=== PATIENT | female | born 1995 | race American Indian/Alaskan Native ===

== ENCOUNTER 2018-11-26 11:24 | Emergency (ER) | payer OTHER ==
--- NOTE | 2018-11-26 11:37 | Emergency Department Report ---
Blank Doc - Documentation Documentation: This is a 23-year-old female that presents with URI symptoms x1 day. This initial assessment/diagnostic orders/clinical plan/treatment(s) is/are subject to change based on patient's health status, clinical progression and re- assessment by fellow clinical providers in the ED. Further treatment and workup at subsequent clinical providers discretion. Patient/guardians urged not to elope from the ED as their condition may be serious if not clinically assessed and managed. Initial orders include: 1- Patient sent to [facility] for further evaluation and treatment 2- CXR
[2018-11-26 11:38] VITALS: BP 136/83
--- NOTE | 2018-11-26 12:50 | XRay Report ---
XRAY CHEST TWO VIEWS: 11/26/18 11:24:00 CLINICAL: Cough. COMPARISON: None FINDINGS: Normal heart and pulmonary vasculature. The lungs are slightly underexpanded but clear. No airspace disease or pleural effusion.The bones and soft tissues are unremarkable. IMPRESSION: Normal chest.
--- NOTE | 2018-11-26 13:16 | Emergency Department Report ---
ED Fever HPI - General Chief Complaint: Upper Respiratory Infection Stated Complaint: FLU LIKE SYMPTOMS Time Seen by Provider: 11/26/18 11:34 Source: patient - History of Present Illness Initial Comments: Ms. Barroso has had fever, cough, nasal congestion, body aches and diarrhea for the past day. 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 Timing/Duration: other (one tracy) Fever Severity/Quality: subjective Fever Therapy [employer]: cold remedies Associated Symptoms: muscle aches, sore throat ED Review of Systems ROS: Stated complaint: FLU LIKE SYMPTOMS Other details as noted in HPI Constitutional: fever, malaise ENT: throat pain Respiratory: cough Gastrointestinal: diarrhea ED Past Medical Hx - Past Medical History Previous Medical History?: No - Surgical History Past Surgical History?: No - Social History Smoking Status: Never Smoker Substance Use Type: Alcohol - Medications Home Medications: Home Medications Medication Instructions Recorded Confirmed Last Taken Type Oseltamivir [Tamiflu] 75 mg PO BID 5 Days #10 cap 11/26/18 Unknown Rx ED Physical Exam - General Limitations: No Limitations General appearance: alert, in no apparent distress - Head Head exam: Present: atraumatic, normocephalic - Eye Eye exam: Present: normal appearance - ENT ENT exam: Present: other (edematous tonsils no exudates) - Neck Neck exam: Present: normal inspection - Respiratory Respiratory exam: Present: normal lung sounds bilaterally. Absent: respiratory distress - Cardiovascular Cardiovascular Exam: Present: regular rate, normal rhythm, normal heart sounds. Absent: systolic murmur, diastolic murmur, rubs, gallop - GI/Abdominal GI/Abdominal exam: Present: soft, normal bowel sounds. Absent: distended, tenderness, guarding, rebound - Extremities Exam Extremities exam: Present: normal inspection - Back Exam Back exam: Present: normal inspection - Neurological Exam Neurological exam: Present: alert, oriented X3 - Psychiatric Psychiatric exam: Present: normal affect, normal mood - Skin Skin exam: Present: warm, dry, intact, normal color. Absent: rash ED Course Vital Signs 11/26/18 11:36 Temperature 98.1 F Pulse Rate 80 Respiratory 18 Rate Blood Pressure 136/83 O2 Sat by Pulse 99 Oximetry ED Medical Decision Making - Radiology Data Radiology results: image reviewed interpreted by me: Chest X-ray PA/Lateral two-view radiographs, interpreted by me. My impression: No infiltrate, no pneumothorax, normal cardiac silhouette, normal mediastinum, no gross osseous abnormality, no acute process - Medical Decision Making Clinical impression: Influenza prescription for Tamiflu Critical care attestation.: If time is entered above; I have spent that time in minutes in the direct care of this critically ill patient, excluding procedure time. ED Disposition Clinical Impression: Influenza Disposition: DC-01 TO HOME OR SELFCARE Is pt being admited?: No Does the pt Need Aspirin: No Condition: Stable Instructions: Influenza (ED) Prescriptions: Oseltamivir [Tamiflu] 75 mg PO BID 5 Days #10 cap Referrals: [facility] [Other] - as needed Forms: Work/School Release Form(ED)
== END 2018-11-26 13:24 | disposition home or self-care (01) ==
LOC: ED 11:24
DX: J11.1 Influenza due to unidentified influenza virus with other respiratory manifestations (principal)
CPT/HCPCS: 71046

== ENCOUNTER 2019-10-23 12:41 | Emergency (ER) | payer OTHER ==
[2019-10-23 13:59] VITALS: BP 125/85
--- NOTE | 2019-10-23 14:00 | Event Note ---
ED Screening Note Date of service: 10/23/19 Time: 13:56 ED Screening Note: 24 y/o female comes in for sore throat since Saturday. Pain with swallowing. Split saliva peritonsilar abscess This initial assessment/diagnostic orders/clinical plan/treatment(s) is/are subject to change based on patients health status, clinical progression and re- assessment by fellow clinical providers in the ED. Further treatment and workup at subsequent clinical providers discretion. Patient/guardian urged not to elope from the ED as their condition may be serious if not clinically assessed and managed. Initial orders include:
--- NOTE | 2019-10-23 16:07 | Cat Scan Report ---
CT NECK WITH INTRAVENOUS CONTRAST AND MULTIPLANAR RECONSTRUCTION CLINICAL HISTORY: peritonsil abscess TECHNIQUE: 2.5 mm thick contiguous axial scans were obtained from the skull base down to the level of the medial clavicular heads. Superior mediastinum and thoracic aorta were excluded.. In addition to evaluation of axial source images sagittal and coronal multiplanar reconstructions were produced and reviewed fo r this report. FINDINGS: Enlargement of the palatine tonsils is demonstrated bilaterally, left larger than right. The tonsils are in contact in the midline and reduces the caliber of the airway in that region. The palatine tons ils extend down to contact the epiglottis bilaterally. Subtle decreased attenuation along the parapha ryngeal space above the posterior lateral aspect of the left palatine tonsil could represent a perito nsillar abscess. This measures about 12 x 17 x 9 mm in size. (Series 2 image 29, series 301 image 44) . CT neck with administration of intravenous contrast may help clarify this finding if clinically war ranted. No additional abnormalities are seen along the course of the airway. Nasopharynx, hypopharynx , larynx and visualized portions of the subglottic airway all have an unremarkable appearance. Normal-sized lymph nodes are present in level 1B bilaterally. Normal level II lymph nodes are also ob served bilaterally. There is no indication of pathological cervical lymphadenopathy. No abnormalities are seen in evaluation of the oral cavity and tongue. The floor the mouth has a norm al appearance. The parotid and submandibular salivary glands have a normal appearance. Evaluation of the nasal cavity reveals no abnormality. The paranasal sinuses are free from inflammato ry mucosal disease. Evaluation of the orbits a reveals no abnormality. The thyroid gland is normal in size and homogeneous in attenuation. No focal thyroid lesions are iden tified. Evaluation of the cervical spine reveals no abnormality. Normal alignment is maintained. No significa nt degenerative changes are identified. Evaluation of the lung apices reveals no abnormality. There is no indication of lung nodule or infilt rate. The visualized portions of the superior mediastinum have an unremarkable appearance. Enhancement of normal vascular structures is demonstrated. No areas of abnormal contrast enhancement are identified. IMPRESSION: 1. Marked enlargement of the palatine tonsils is demonstrated bilaterally, left more than right, as d escribed in detail above. 2. Subtle decreased attenuation located just above the the posterior lateral aspect of the left palat ine tonsil could represent a peritonsillar abscess as described above. All CT imaging studies performed at this facility utilize dose modulation, iterative reconstruction o r weight based dosing, if appropriate, to obtain the lowest achievable radiation dose. Signer Name: Lucio Vines MD Signed: 10/23/2019 4:03 PM Workstation Name: [id number]
[2019-10-23] MEDS ORDERED: HYDROcodone/ACETAMINOPHEN 5-325 MG TAB PO ONE (16:49)
[2019-10-23] MEDS ORDERED: IBUPROFEN 800 MG TAB PO ONE (16:49)
[2019-10-23] MEDS ORDERED: LIDOCAINE 1%/EPINEPHRINE 1:100,000 VIAL (20 ML) INFILTRATI ONE (16:50)
[2019-10-23] MEDS ORDERED: LIDOCAINE VISCOUS 2% 15 ML ORAL LIQD PO ONE (16:50)
[2019-10-23] MEDS ORDERED: CLINDAMYCIN 300 MG CAP PO ONE (16:54)
--- NOTE | 2019-10-23 16:57 | Emergency Department Report ---
HPI - General Chief Complaint: Sore Throat Time Seen by Provider: 10/23/19 13:55 - HPI HPI: Room 36 The patient is a 24-year-old female presenting with a chief complaint of sore throat. Patient states for the past 3 days pain for (left. Patient denies fever or rhinorrhea. Patient admits to odynophagia and occasional cough. Patient gives her pain a score 10/10 Location: [See above] Duration: [See above] Quality: [See above] Severity: [See above] Timing: [See above] Context: [See above] Modifying factors: [See above] Associated signs and symptoms: [see above] ED Past Medical Hx - Past Medical History Previous Medical History?: No - Surgical History Past Surgical History?: No - Family History Family history: no significant - Social History Smoking Status: Never Smoker Substance Use Type: None - Medications Home Medications: Home Medications Medication Instructions Recorded Confirmed Last Taken Type Oseltamivir [Tamiflu] 75 mg PO BID 5 Days #10 cap 11/26/18 Unknown Rx Clindamycin [Clindamycin CAP] 300 mg PO Q6H #40 capsule 10/23/19 Unknown Rx HYDROcodone/APAP 5-325 [[place] 1 - 2 each PO Q6HR PRN #14 tablet 10/23/19 Unknown Rx 5/325] Ibuprofen [Motrin 800 MG tab] 800 mg PO Q8HR PRN #20 tablet 10/23/19 Unknown Rx ED Review of Systems ROS: Stated complaint: throat pain Other details as noted in HPI Constitutional: denies: fever Eyes: denies: eye pain ENT: throat pain Respiratory: cough Physical Exam - Physical Exam Vital Signs: Vital Signs 10/23/19 13:57 Temperature 98.7 F Pulse Rate 86 Respiratory 20 Rate Blood Pressure 125/85 [125/85] O2 Sat by Pulse 99 Oximetry Physical Exam: GENERAL: The patient is well-developed well-nourished female sitting on stretcher not appearing to be in acute distress. [] HEENT: Normocephalic. Atraumatic. Extraocular motions are intact. Left tonsil fullness. No trismus appreciated NECK: Supple. No meningitic signs are noted. There is no cervical adenopathy present CHEST/LUNGS: There is no respiratory distress noted. SKIN: There is no rash. There is no edema. There is no diaphoresis. NEURO: The patient is awake, alert, and oriented. The patient is cooperative. The patient has normal speech MUSCULOSKELETAL: There is no evidence of acute injury. ED Course Vital Signs 10/23/19 13:57 Temperature 98.7 F Pulse Rate 86 Respiratory 20 Rate Blood Pressure 125/85 [125/85] O2 Sat by Pulse 99 Oximetry - Procedure Description Procedures done: Left peritonsillar abscess aspiration- patient was pre- anesthetized with viscous lidocaine by mouth. Patient was then given an injection of lidocaine 1% with epi 2 mls. There are 19-gauge needle with 1 cm guard was inserted to be in the size region with aspiration of approximately 0.5 mL coffee colored pus. Patient tolerated well ED Medical Decision Making - Differential Diagnosis tonsillitis, retropharyngeal abscess, peritonsillar abscess Critical care attestation.: If time is entered above; I have spent that time in minutes in the direct care of this critically ill patient, excluding procedure time. ED Disposition Clinical Impression: Peritonsillar abscess Disposition: DC- TO HOME OR SELFCARE Is pt being admited?: No Does the pt Need Aspirin: No Condition: Stable Instructions: Peritonsillar Abscess (ED) Additional Instructions: Return to the emergency department should you develop worsening symptoms, inability to tolerate food or liquids, high fever or any other concerns Prescriptions: Clindamycin [Clindamycin CAP] 300 mg PO Q6H #40 capsule Ibuprofen [Motrin 800 MG tab] 800 mg PO Q8HR PRN #20 tablet PRN Reason: Pain, Moderate (4-6) HYDROcodone/APAP 5-325 [[place] 5/325] 1 - 2 each PO Q6HR PRN #14 tablet PRN Reason: Pain Referrals: BRADY ELIZABETH MD [Staff Physician] - 3-5 Days (Dr. 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 Please follow-up with her for further evaluation) Time of Disposition: 17:30
== END 2019-10-23 17:54 | disposition home or self-care (01) ==
LOC: ED 12:41
DX: J36 Peritonsillar abscess (principal); Z79.899 Other long term (current) drug therapy
CPT/HCPCS: 70490; 87076; 87116; 87186

== ENCOUNTER 2021-09-14 17:04 | Emergency (ER) | payer OTHER ==
[2021-09-14] MEDS ORDERED: SODIUM CHLORIDE 0.9% 1000 ML 1,000 ML IV ONE (20:46)
[2021-09-14] MEDS ORDERED: KETOROLAC 30 MG/1 ML INJ IV ONE (20:46)
[2021-09-14] MEDS ORDERED: dexAMETHasone 20 MG/5 ML VIAL IV ONE (20:46)
[2021-09-14] MEDS ORDERED: ONDANSETRON 4 MG/2 ML INJ IV ONE (20:46)
[2021-09-14 21:36] LABS: Alanine Aminotransferase 11 units/L (7-56); Albumin 4.5 g/dL (3.9-5); BUN/Creatinine Ratio 9; Blood Urea Nitrogen 6 mg/dL (7-17); Calcium 9.5 mg/dL (8.4-10.2); Hemolysis Index 13
--- NOTE | 2021-09-14 22:07 | XRay Report ---
CHEST 2 VIEWS INDICATION / CLINICAL INFORMATION: cough. COMPARISON: 11/26/18 FINDINGS: SUPPORT DEVICES: None. HEART / MEDIASTINUM: No significant abnormality. LUNGS / PLEURA: No significant pulmonary or pleural abnormality. No pneumothorax. ADDITIONAL FINDINGS: No significant additional findings. IMPRESSION: 1. No acute findings. Signer Name: Kiara Hussein MD Signed: 09/14/2021 10:03 PM Workstation Name: [id number]
[2021-09-14 23:48] LABS: Bilirubin,Urine NEG (Negative); Blood,Urine MOD (Negative); Color,Urine Yellow (Yellow); Mucus,Urine 2+ /HPF; Protein,Urine <15 mg/dL mg/dL (Negative); Urobilinogen,Urine < 2.0 mg/dL (<2.0)
--- NOTE | 2021-09-15 00:21 | Emergency Department Report ---
- General Chief Complaint: Upper Respiratory Infection Stated Complaint: SICK,CHEST AND BACK PAIN, SWEATING COUGH Source: patient Mode of arrival: Ambulatory Limitations: No Limitations - History of Present Illness Initial Comments: Patient is a 26-year-old -[place] female with no past medical history who presented to the ED with complaint of acute onset persistent nasal and sinus congestion, frontal sinus pressure and headache, sore throat, fever and chills, diffuse body aches and pains, nausea, vomiting or diarrhea, persistent dry cough with pleuritic chest pain for the last 5 days. Patient states that the symptoms have worsened especially in the last 24 hours such that she has not not been able to eat anything because of worsening symptoms. Patient denies dizziness, syncope, shortness of breath, abdominal pain, dysuria, urinary frequency and urgency, change in vision, seizures or hematochezia or hematemesis. MD Complaint: fever, cough, sore throat, rhinorrhea, nasal congestion, sinus pain, other (Diffuse body aches and pains) -: Sudden, days(s) (5) Severity: severe Severity scale (0 -10): 7 Quality: sharp, aching Consistency: constant Improves With: nothing Worsens With: nothing Associated Symptoms: denies other symptoms, fever, chills, myalgias, headache, rhinorrhea, nasal congestion, sore throat, cough, chest pain, nausea, vomiting. denies: diaphoresis, stiff neck, abdominal pain, diarrhea, dysuria, rash, confusion, right sweats, epistaxis, hoarseness, ear pain Treatments Prior to Arrival: "cold medicine" - Related Data Previous Rx's Medication Instructions Recorded Last Taken Type Oseltamivir [Tamiflu] 75 mg PO BID 5 Days #10 cap 11/26/18 Unknown Rx Clindamycin [Clindamycin CAP] 300 mg PO Q6H #40 capsule 10/23/19 Unknown Rx HYDROcodone/APAP 5-325 [[place] 1 - 2 each PO Q6HR PRN #14 tablet 10/23/19 Unknown Rx 5/325] Ibuprofen [Motrin 800 MG tab] 800 mg PO Q8HR PRN #20 tablet 10/23/19 Unknown Rx Azithromycin [Zithromax Z-MARIAH] 250 mg PO DAILY #6 tablet 09/15/21 Unknown Rx Benzonatate [Tessalon Perles] 100 mg PO Q8HR #30 capsule 09/15/21 Unknown Rx Cetirizine HCl [Zyrtec 10mg tab] 10 mg PO DAILY #30 tablet 09/15/21 Unknown Rx Ibuprofen [Motrin] 600 mg PO Q8H PRN #30 tablet 09/15/21 Unknown Rx Ondansetron [Zofran Odt] 4 mg PO Q6HR PRN #20 tab.rapdis 09/15/21 Unknown Rx methylPREDNISolone [Medrol 4MG 4 mg PO DAILY #21 tab.ds.pk 09/15/21 Unknown Rx DOSEPAK (21 tabs)] Allergies Allergy/AdvReac Type Severity Reaction Status Date / Time No Known Allergies Allergy Verified 09/14/21 17:17 ED Review of Systems ROS: Stated complaint: SICK,CHEST AND BACK PAIN, SWEATING COUGH Other details as noted in HPI Constitutional: denies: chills, fever Eyes: denies: eye pain, eye discharge, vision change ENT: throat pain, congestion, other (Frontal sinus pressure). denies: ear pain Respiratory: cough, shortness of breath. denies: wheezing Cardiovascular: chest pain (Pleuritic chest pain). denies: palpitations Endocrine: no symptoms reported Gastrointestinal: nausea, vomiting. denies: abdominal pain, diarrhea, constipation, hematemesis, hematochezia Genitourinary: denies: urgency, dysuria, discharge Musculoskeletal: arthralgia, myalgia. denies: back pain, joint swelling Skin: denies: rash, lesions Neurological: headache (Frontal sinus pressure and headache). denies: weakness, paresthesias Psychiatric: denies: anxiety, depression Hematological/Lymphatic: denies: easy bleeding, easy bruising ED Past Medical Hx - Social History Smoking Status: Never Smoker Substance Use Type: None - Medications Home Medications: Home Medications Medication Instructions Recorded Confirmed Last Taken Type Oseltamivir [Tamiflu] 75 mg PO BID 5 Days #10 cap 11/26/18 Unknown Rx Clindamycin [Clindamycin CAP] 300 mg PO Q6H #40 capsule 10/23/19 Unknown Rx HYDROcodone/APAP 5-325 [[place] 1 - 2 each PO Q6HR PRN #14 tablet 10/23/19 Unknown Rx 5/325] Ibuprofen [Motrin 800 MG tab] 800 mg PO Q8HR PRN #20 tablet 10/23/19 Unknown Rx Azithromycin [Zithromax Z-MARIAH] 250 mg PO DAILY #6 tablet 09/15/21 Unknown Rx Benzonatate [Tessalon Perles] 100 mg PO Q8HR #30 capsule 09/15/21 Unknown Rx Cetirizine HCl [Zyrtec 10mg tab] 10 mg PO DAILY #30 tablet 09/15/21 Unknown Rx Ibuprofen [Motrin] 600 mg PO Q8H PRN #30 tablet 09/15/21 Unknown Rx Ondansetron [Zofran Odt] 4 mg PO Q6HR PRN #20 tab.rapdis 09/15/21 Unknown Rx methylPREDNISolone [Medrol 4MG 4 mg PO DAILY #21 tab.ds.pk 09/15/21 Unknown Rx DOSEPAK (21 tabs)] ED Physical Exam - General Limitations: No Limitations General appearance: alert, in no apparent distress - Head Head exam: Present: atraumatic, normocephalic, normal inspection - Eye Eye exam: Present: normal appearance, PERRL, EOMI Pupils: Present: normal accommodation - ENT ENT exam: Present: normal orophraynx, mucous membranes moist, TM's normal bilaterally, normal external ear exam, other (Grossly congested nasal passages; palpable frontal sinus tenderness) - Neck Neck exam: Present: normal inspection, full ROM, lymphadenopathy (Anterior cervical lymphadenopathy). Absent: tenderness - Respiratory Respiratory exam: Present: normal lung sounds bilaterally. Absent: respiratory distress, wheezes, rales, rhonchi, chest wall tenderness, accessory muscle use, decreased breath sounds, prolonged expiratory - Cardiovascular Cardiovascular Exam: Present: regular rate, normal rhythm, normal heart sounds. Absent: systolic murmur, diastolic murmur, rubs, gallop - GI/Abdominal GI/Abdominal exam: Present: soft, normal bowel sounds. Absent: tenderness, g uarding, rebound, hyperactive bowel sounds, hypoactive bowel sounds, organomegaly - Extremities Exam Extremities exam: Present: normal inspection, full ROM, normal capillary refill - Back Exam Back exam: Present: normal inspection, full ROM. Absent: tenderness, CVA tenderness (R), CVA tenderness (L), muscle spasm, paraspinal tenderness, vertebral tenderness, rash noted - Neurological Exam Neurological exam: Present: alert, oriented X3, CN II-XII intact, normal gait, reflexes normal - Psychiatric Psychiatric exam: Present: normal affect, normal mood - Skin Skin exam: Present: warm, dry, intact, normal color. Absent: rash ED Course Vital Signs 09/14/21 09/14/21 17:14 22:10 Temperature 99.1 F Pulse Rate 95 H Respiratory 18 18 Rate Blood Pressure 128/84 [Left] O2 Sat by Pulse 100 Oximetry ED Medical Decision Making - Lab Data Result diagrams: 09/14/21 21:00 - Radiology Data Radiology results: report reviewed, image reviewed [facility] [address] [place] [address] XRay Report Signed Patient: DERIC MEADOWS MR# : [id number] : 1995 Acct:[id number] Age/Sex: 26 / F ADM Date: 09/14/21 Loc: ED Attending Dr: Ordering Physician: DIVINA HALL Date of Service: 09/14/21 Procedure(s): XR chest routine 2V Accession Number(s): [id number] cc: DIVINA HALL Fluoro Time In Minutes: CHEST 2 VIEWS INDICATION / CLINICAL INFORMATION: cough. COMPARISON: 11/26/18 FINDINGS: SUPPORT DEVICES: None. HEART / MEDIASTINUM: No significant abnormality. LUNGS / PLEURA: No significant pulmonary or pleural abnormality. No pneumothorax. ADDITIONAL FINDINGS: No significant additional findings. IMPRESSION: 1. No acute findings. Signer Name: Kiara Hussein MD Signed: 09/14/2021 10:03 PM Workstation Name: [id number] Transcribed By: DT Dictated By: Antonio Hussein MD Electronically Authenticated By: Antonio Hussein MD Signed Date/Time: 09/14/212202 DD/ 99 TD/TT: - Medical Decision Making This is a 26-year-old -[place] female with no past medical history who presented to the ED with complaint of acute onset persistent nasal and sinus congestion, frontal sinus pressure and headache, sore throat, fever and chills, diffuse body aches and pains, nausea, vomiting or diarrhea, persistent dry cough with pleuritic chest pain for the last 5 days. Patient states that the symptoms have worsened especially in the last 24 hours such that she has not not been able to eat anything because of worsening symptoms. In the ED, patient is alert and oriented x3 and is not in distress. Patient is hemodynamically stable. Lab test results were reviewed and are all nonactionable. Chest x-ray showed no acute cardiopulmonary abnormalities or pneumonitis. Patient was treated in the ED for pain and was given antiemetics and normal saline 1 L IV bolus x1. On reevaluation, patient felt better, the headache resolved and patient was discharged home on medications based on the physical exam findings as well as the history. Patient was advised to follow-up with her primary care physician in 7 to 10 days for reevaluation. Patient was also encouraged to get a COVID-19 diagnosis test in the outpatient facilities to be able to ascertain whether she has the Covid or not. Patient was advised return to the ED immediately if symptoms get worse. - Differential Diagnosis COVID-19; pharyngitis; viral syndrome; bronchitis; pneumonia; URI Critical care attestation.: If time is entered above; I have spent that time in minutes in the direct care of this critically ill patient, excluding procedure time. ED Disposition Clinical Impression: Acute upper respiratory infection, Nausea and vomiting in adult patient Acute bronchitis Qualifiers: Bronchitis organism: other organism Qualified Code(s): J20.8 - Acute bronchitis due to other specified organisms Disposition: 01 HOME / SELF CARE / HOMELESS Is pt being admited?: No Condition: Stable Instructions: Acute Bronchitis (ED), Upper Respiratory Infection, Adult, [id number], Cough, Adult, [id number], Nausea and Vomiting, Adult, [id number], Acute Bronchitis, Adult, [id number] Additional Instructions: All lab test results were reviewed and are all nonactionable. Chest x-ray showed no acute cardiopulmonary abnormalities or pneumonitis. Therefore take medications with food, drink plenty of fluids and follow-up with your primary care physician in 5 to 7 days for reevaluation. Consider getting a COVID-19 test in any of the outpatient facilities to ascertain the work condition. Otherwise return to the ED immediately if his symptoms get worse. Prescriptions: methylPREDNISolone [Medrol 4MG DOSEPAK (21 tabs)] 4 mg PO DAILY #21 tab.ds.pk Ibuprofen [Motrin] 600 mg PO Q8H PRN #30 tablet PRN Reason: Pain Benzonatate [Tessalon Perles] 100 mg PO Q8HR #30 capsule Azithromycin [Zithromax Z-MARIAH] 250 mg PO DAILY #6 tablet Ondansetron [Zofran Odt] 4 mg PO Q6HR PRN #20 tab.rapdis PRN Reason: Nausea Cetirizine HCl [Zyrtec 10mg tab] 10 mg PO DAILY #30 tablet Referrals: [facility] [Provider Group] - 7-10 days Forms: Work/School Release Form(ED) Time of Disposition: 00:24 Print Language: WELSH
[2021-09-15 01:17] VITALS: BP 122/60
== END 2021-09-15 01:18 | disposition home or self-care (01) ==
LOC: ED 17:04
DX: J06.9 Acute upper respiratory infection, unspecified (principal); R11.2 Nausea with vomiting, unspecified; J20.8 Acute bronchitis due to other specified organisms
CPT/HCPCS: 36415; 71046; 80053; 81001; 84703; 96361; 96374; 96375; 99284; J1100; J1885; J2405; J7030; Q0162